=== PATIENT | female | born 1960 | race Two or more races ===

== ENCOUNTER 2016-05-22 12:30 | Emergency (ER) | payer MEDICAID, OTHER ==
[2016-05-22] MEDS ORDERED: HYDROCODONE/ACETAMINOPHEN 5/325MG TABLET ONE (13:28)
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
== END 2016-05-22 13:42 | disposition home or self-care (01) ==
LOC: ED 12:30
DX: S20.219A Contusion of unspecified front wall of thorax, initial encounter (principal); S60.222A Contusion of left hand, initial encounter; I10 Essential (primary) hypertension; E11.9 Type 2 diabetes mellitus without complications; V47.0XXA Car driver injured in collision with fixed or stationary object in nontraffic accident, initial encounter; Y92.410 Unspecified street and highway as the place of occurrence of the external cause
CPT/HCPCS: 71020; 73110; 99283 ×2; 93005; A9270

== ENCOUNTER 2016-06-03 10:38 | Emergency (ER) | payer SELFPAY ==
[2016-06-03] MEDS ORDERED: DIPHTH,PERTUSS(ACELL),TET VAC 0.5 ML VIAL IM V ONE (11:17)
--- NOTE | 2016-06-03 11:50 | RAD ---
RIGHT ANKLE 2 VIEWS HISTORY: Ankle laceration. COMPARISONS: None. TECHNIQUE: Frontal and lateral views of the right ankle. ALIGNMENT: Grossly unremarkable. FRACTURE: No displaced acute fracture. SOFT TISSUES: Anterolateral soft tissue tissue defect measuring 11 x 5 x 12 mm in size in keeping with history of laceration. RADIOOPAQUE FOREIGN BODY: None. CALCANEUS: Prominent plantar spur. IMPRESSION: Soft tissue defect compatible with known laceration. No associated fracture or radiopaque foreign body.
== END 2016-06-03 12:18 | disposition home or self-care (01) ==
LOC: ED 10:38
DX: S81.811A Laceration without foreign body, right lower leg, initial encounter (principal); I10 Essential (primary) hypertension; E11.9 Type 2 diabetes mellitus without complications; Z23 Encounter for immunization; W25.XXXA Contact with sharp glass, initial encounter; Y92.9 Unspecified place or not applicable